=== PATIENT | male | born 1995 | race African-American/Black ===

== ENCOUNTER 2019-06-30 21:45 | Emergency (ER) | payer BC, OTHER ==
[~2019-06-30] VITALS: Ht 177.8 cm; Wt 91.0 kg
[2019-07-01] MEDS ORDERED: HYDROCODONE/ACETAMINOPHEN 5/325MG TABLET PO ONE (01:00)
[2019-07-01 02:33] VITALS: BP 135/61
== END 2019-07-01 02:33 | disposition home or self-care (01) ==
LOC: ER 21:45
DX: M25.562 Pain in left knee (principal); V89.2XXA Person injured in unspecified motor-vehicle accident, traffic, initial encounter; Y93.9 Activity, unspecified; Y92.9 Unspecified place or not applicable
CPT/HCPCS: 99283

== ENCOUNTER 2021-09-02 21:59 | Emergency (ER) | payer BC, MEDICAID | END 2021-09-03 00:25 | disposition left against medical advice (07) | LOC: ER 21:59 | DX: Z53.21 Procedure and treatment not carried out due to patient leaving prior to being seen by health care provider (principal) ==